=== PATIENT | female | born 1940 | race Hispanic/Latino ===

== ENCOUNTER → 2018-01-17 | Outpatient (CLI) | payer MEDICARE | END | disposition home or self-care (01) | LOC: RAH 10:11 | PROVIDERS: ATTEND Family Medicine | DX: Z12.31 Encounter for screening mammogram for malignant neoplasm of breast (principal) | CPT/HCPCS: 77067 ==

== ENCOUNTER → 2025-03-21 | Outpatient (CLI) | payer OTHER, MEDICARE ==
--- NOTE | 2025-03-21 15:46 | HMCIMG ---
KNEE/PATELLA 1-2VWS LT HISTORY: Left knee pain COMPARISON: None TECHNIQUE: 2 images of the left knee were obtained. FINDINGS: There is no acute displaced fracture or dislocation. Bony osteopenia is seen. Degenerative changes are seen. IMPRESSION: 1. Findings as described above.
--- NOTE | 2025-03-21 15:48 | HMCIMG ---
US VENOUS DOPPLER UNILATERAL HISTORY: Left lower abdominal pain COMPARISON: None TECHNIQUE: Left lower extremity venous Doppler ultrasound study was performed. FINDINGS: The left common femoral, femoral, popliteal, and posterior tibial veins are visualized. Normal flow with augmentation and compressibilities are demonstrated. Left greater saphenous vein is patent. There is left Mcrae's cyst measuring 3.7 x 0.7 x 2.8 cm. IMPRESSION: 1. No evidence of deep venous thrombosis is seen. Left Mcrae's cyst.
== END | disposition home or self-care (01) ==
LOC: RAH 14:35
PROVIDERS: ATTEND Family Medicine
DX: M17.12 Unilateral primary osteoarthritis, left knee (principal); M71.22 Synovial cyst of popliteal space [Baker], left knee; M85.88 Other specified disorders of bone density and structure, other site; M25.562 Pain in left knee; M79.605 Pain in left leg
CPT/HCPCS: 73560; 93971